=== PATIENT | female | born 1985 | race Hispanic/Latino ===

== ENCOUNTER 2022-11-20 13:00 | Emergency (ER) | payer BC ==
--- OUTSIDE RECORDS SUMMARY | 2022-11-20 13:03 | XMS REPORT | Continuity of Care Document ---
:1985 Author Organization [facility] t Address [address] [place] [address] Care Team Providers Name Role Phone PCP, PATIENT DOES NOT HAVE A Primary Care Physician UnavailCATA Ya Attending Clinician Unavailable [id number] Attending Clinician Unavailable RADHA MARTINEZ Attending Clinician Unavailable [id number] Attending Clinician Unavailable Radha Martinez MD Attending Clinician [phone] Provider, [facility] Attending Clinician Unavailable Only, Ang Db Test Attending Clinician Unavailable Ian Noguera MD Attending Clinician EbDarrick Lagunas Attending Clinician DARRICK SAUNDERS Attending Clinician Unavailable Doctor Unassigned, [place] Attending Clinician Unavailable BINTA GORE Attending Clinician Unavailable FL1, [id number] Attending Clinician Unavailable LAB39 Attending Clinician Unavailable Binta Gore MD Attending Clinician Simona Fernandez RN Attending Clinician Unavailable SARAH CALLEJAS Attending Clinician Unavailable Only, Adc Test Attending Clinician Unavailable Sarah Callejas MD Attending Clinician Payers Payer Name Policy Type Policy Number Effective Date Expiration Date S santana BCBS 2 [id number] 2021 00:00:00 Problems Condition Condition Condition Status Onset Resolution Last Treating Co mments Source Name Details Category Date Date Treatment Clinician Date 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 Shawn sey streptococ streptococ 2-09 Se ybold sosa sosa 00:00: - tonsilliti tonsilliti 00 Ex terna s s l Pharyngiti Pharyngiti Disease Active 2021-11 Igor moreno s due to s due to 11-28 Seybol d Streptococ Streptococ 00:00: - cus cus 00 Externa species species l Acute Acute Disease Active 2021-11 Apoorva pharyngiti pharyngiti 11-17 Se ybold s due to s due to 00:00: - other other 00 Externa specified specified l organisms organisms Breast Breast Disease Active 2021-11 Apoorva pain pain 0-11 Seybold 00:00: - 00 Externa l Nausea Nausea Disease Active 2021-11 Apoorva 0-11 Seybold 00:00: - 00 Externa l Gastroesop Gastroesop Disease Active 2021-11 Igor moreno hageal hageal 0-11 Seybold reflux reflux 00:00: - disease disease 00 Externa without without l esophagiti esophagiti s s Allergies, Adverse Reactions, Alerts Allergy Allergy Status Severity Reaction(s) Onset Inactive Treating Comm ents Source Name Type Date Date Clinician NO KNOWN Drug Active [facility] Social History Social Habit Start Date Stop Date Quantity Comments Source History SDOH Apoorva Eddy ld - Alcohol Binge External History SDOH Apoorva Eddy ld - Alcohol Frequency Externa l History SDOH Apoorva Eddy ld - Alcohol Std External Drinks Exposure to Not sure University SARS-CoV-2 [facility] (event) [place] Alcohol intake 2022-10-09 2022-10-09 Current drinker Rajesh sigala mick - 00:00:00 00:00:00 of alcohol External (finding) Alcohol Comment 2021-11-07 2021-11-07 rarely Apoorva Giles fredoold - 00:00:00 00:00:00 External Tobacco use and 2021-11-07 2021-11-07 Smokeless tobacco Ke xochilt Seybold - exposure 00:00:00 00:00:00 non-user External Sex [birth year] At [birth year] Apoorva Giles fredoold - 00:00:00 00:00:00 External Smoking Status Start Date Stop Date Source Unknown if ever smoked [facility] Never smoked tobacco Apoorva Morgan old - External Medications Ordered Filled Start Stop Current Ordering Indication Dosage Frequency Signature Comments Components Source Medication Medication Date Date Medication? Clinician (SIG) Name Name Cefuroxime 2021-11 Yes [id number] 250mg Take 1 Apoorva Axetil 250 2-09 tablet Seybold MG oral 00:00: (250 mg - Tablet 00 total) by Externa mouth 2 l times daily Cefuroxime 2021-11- No [id number] 250mg Take 1 Apoorva Axetil 250 2- 12- tablet Seybol d MG oral 00:00: 00:00 (250 mg - Tablet 00 :00 total) by Externa mouth 2 l times daily Amoxicillin 2021-11 Yes [id number] 1{tbl} Take 1 Apoorva -Pot 1-28 tablet by Seybold Clavulanate 00:00: mouth 2 - 875-125 MG 00 times Externa oral Tablet daily l Amoxicillin 2021-11- No [id number] 1{tbl} Take 1 Apoorva -Pot 1-28 - tablet by Seybold Clavulanate 00:00: 00:00 mouth 2 - 875-125 MG 00 :00 times Externa oral Tablet daily l Fluconazole 2021-11- Yes [id number] 150mg Take 1 Apoorva 150 MG oral -28 -29 tablet Seybo ld Tablet 00:00: 05:59 (150 mg - 00 :00 total) by Externa mouth once l for 1 dose Amoxicillin 2021-11 Yes [id number] 1{tbl} Take 1 Apoorva -Pot 1-17 tablet by Seybold Clavulanate 00:00: mouth 2 - 875-125 MG 00 times Externa oral Tablet daily l Amoxicillin 2021-11- No [id number] 1{tbl} Take 1 Apoorva -Pot 1-17 -28 tablet by Seybold Clavulanate 00:00: 00:00 mouth 2 - 875-125 MG 00 :00 times Externa oral Tablet daily l Famotidine 2021-11 Yes [id number] 20mg Take 1 Apoorva (Pepcid) 20 0-11 tablet (20 Se ybold MG oral 00:00: mg total) - tablet 00 by mouth 2 Externa times l daily Famotidine 2021-11 Yes [id number] 20mg Take 1 Apoorva (Pepcid) 20 0-11 tablet (20 Se ybold MG oral 00:00: mg total) - tablet 00 by mouth 2 Externa times l daily Famotidine 2021-11 Yes [id number] 20mg Take 1 Apoorva (Pepcid) 20 0-11 tablet (20 Se ybold MG oral 00:00: mg total) - tablet 00 by mouth 2 Externa times l daily Famotidine 2021-11 Yes [id number] 20mg Take 1 Apoorva (Pepcid) 20 0-11 tablet (20 Se ybold MG oral 00:00: mg total) - tablet 00 by mouth 2 Externa times l daily No known No No known Kelse y medications 1-07 medication Se ybold 14:21: s 32 Immunizations Ordered Immunization Filled Immunization Date Status Commen ts Source Name Name Tdap- (Boostrix, 2021-08-04 Completed Apoorva simpson Adacel) 00:00:00 - External Influenza Virus 2021-08-04 Completed Apoorva barton Vaccine, age 7 00:00:00 - External months and up Tdap- (Boostrix, 2021-08-04 Completed Apoorva waltersbold Adacel) 00:00:00 Influenza Virus 2021-08-04 Completed Apoorva barton Vaccine, age 6 00:00:00 months and up Tdap- (Boostrix, 2021-08-04 Completed Apoorva waltersbogavino Adacel) 00:00:00 - External Influenza Virus 2021-08-04 Completed Apoorva barton Vaccine, age 7 00:00:00 - External months and up Tdap- (Boostrix, 2021-08-04 Completed Apoorva waltersbold Adacel) 00:00:00 - External Influenza Virus 2021-08-04 Completed Apoorva barton Vaccine, age 7 00:00:00 - External months and up Tdap- (Boostrix, 2021-08-04 Completed Apoorva waltersbold Adacel) 00:00:00 - External Influenza Virus 2021-08-04 Completed Apoorva barton Vaccine, age 7 00:00:00 - External months and up Vital Signs Vital Name Observation Time Observation Value Comments Source Body weight 2022-10-09 16:51:00 61.689 kg Apoorva simpson - External BMI 2022-10-09 16:51:00 24.09 kg/m2 Apoorva S eybold - External Oxygen saturation in 2022-10-09 16:51:00 99 /min Apoorva Seybold - Arterial blood by External Pulse oximetry Systolic blood 2022-10-09 16:51:00 103 mm[Hg] Apoorva Seybold - pressure External Diastolic blood 2022-10-09 16:51:00 67 mm[Hg] Kelse y Seybold - pressure External Heart rate 2022-10-09 16:51:00 88 /min Apoorva S eybold - External Body temperature 2022-10-09 16:51:00 37.17 Jany Abida ey Seybold - External Respiratory rate 2022-10-09 16:51:00 14 /min Abida ey Seybold - External Body height 2022-10-09 16:51:00 160 cm Apoorva S eybold - External Body weight 2022-09-28 19:17:00 61.689 kg Apoorva S eybold - External BMI 2022-09-28 19:17:00 24.09 kg/m2 Apoorva S eybold - External Oxygen saturation in 2022-09-28 19:17:00 99 /min Apoorva Seybold - Arterial blood by External Pulse oximetry Systolic blood 2022-09-28 19:17:00 103 mm[Hg] Apoorva Seybold - pressure External Diastolic blood 2022-09-28 19:17:00 65 mm[Hg] Shawnse y Seybold - pressure External Heart rate 2022-09-28 19:17:00 78 /min Apoorva S eybold - External Body temperature 2022-09-28 19:17:00 37.11 Jany Abida ey Seybold - External Respiratory rate 2022-09-28 19:17:00 14 /min Abida ey Seybold - External Body height 2022-09-28 19:17:00 160 cm Apoorva S eybold - External Systolic blood 2022-09-17 16:36:00 88 mm[Hg] Apoorva Seybold - pressure External Diastolic blood 2022-09-17 16:36:00 44 mm[Hg] Kelse y Seybold - pressure External Heart rate 2022-09-17 16:36:00 120 /min Apoorva S eybold - External Body temperature 2022-09-17 16:36:00 36.67 Jany Abida ey Seybold - External Respiratory rate 2022-09-17 16:36:00 14 /min Abida ey Seybold - External Body height 2022-09-17 16:36:00 160 cm Apoorva S eybold - External Body weight 2022-09-17 16:36:00 62.596 kg Apoorva S eybold - External BMI 2022-09-17 16:36:00 24.45 kg/m2 Apoorva S eybold - External Systolic blood 2022-08-11 21:09:00 109 mm[Hg] Apoorva Seybold - pressure External Diastolic blood 2022-08-11 21:09:00 67 mm[Hg] Kelse y Seybold - pressure External Heart rate 2022-08-11 21:09:00 65 /min Apoorva S eybold - External Body temperature 2022-08-11 21:09:00 36.56 Jany Abida ey Seybold - External Respiratory rate 2022-08-11 21:09:00 14 /min Abida ey Seybold - External Body height 2022-08-11 21:09:00 160 cm Apoorva S eybold - External Body weight 2022-08-11 21:09:00 63.504 kg Apoorva S eybold - External BMI 2022-08-11 21:09:00 24.80 kg/m2 Apoorva S eybold - External Systolic blood 2021-11-07 20:00:00 110 mm[Hg] Apoorva Seybold pressure Diastolic blood 2021-11-07 20:00:00 70 mm[Hg] Kelse y Seybold pressure Heart rate 2021-11-07 20:00:00 72 /min Apoorva S eybold Body temperature 2021-11-07 20:00:00 36.67 Jany Abida ey Seybold Respiratory rate 2021-11-07 20:00:00 18 /min Abida ey Seybold Body height 2021-11-07 20:00:00 160 cm Apoorva S eybold Body weight 2021-11-07 20:00:00 63.776 kg Apoorva S eybold BMI 2021-11-07 20:00:00 24.91 kg/m2 Apoorva S eybold Procedures Procedure Date / Time Performed Performing Clinician [facility] e LS RAPID STREP 2022-10-09 17:07:09 Cata Clarke ld - ASSAY-LAB TEST External LS RAPID STREP 2022-09-17 16:46:53 Cata Clarke ld - ASSAY-LAB TEST External LS RAPID FLU ASSAY-LAB 2022-09-17 16:46:53 Cata Clarke Seybold - TEST External ASSIGNMENT OF BENEFITS 2021-12-11 14:45:53 Doctor Unassigned, No [facility] URINALYSIS, ROUTINE 2021-11-07 21:40:00 Binta Gore CBC WITH 2021-11-07 20:55:00 Binta Gore DIFFERENTIAL/PLATELET LIPID PANEL 2021-11-07 20:55:00 Binta Gore BASIC METABOLIC PANEL 2021-11-07 20:55:00 Binta Gore (8) CONSENT/REFUSAL FOR 2020-08-01 16:42:56 Doctor Unassigned, No [facility] DIAGNOSIS AND [facility] TREATMENT ASSIGNMENT OF BENEFITS 2020-08-01 16:42:40 Doctor Unassigned, No [facility] Encounters Start End Encounter Admission Attending Care Care Encounter Source Date/Time Date/Time Type Type Clinicians Facility Department ID 2022-11-20 2022-11-20 Outpatient APOORVA CALRKE [id number] Apoorva 00:00:00 00:00:00 CATA Seybol d 2022-10-16 2022-10-16 Outpatient APOORVA CLARKE [id number] Apoorva 00:00:00 00:00:00 CATA Seybol d 2022-10-09 2022-10-09 Outpatient [id number] APOORVA GOMES [id number] Apoorva 14:10:00 14:10:00 Seybol d 2022-10-09 2022-10-09 Outpatient APOORVA CLARKE [id number] Apoorva 11:00:00 11:00:00 CATA Seybol d 2022-09-28 2022-09-28 Outpatient PLT40-HLD APOORVA GOMES [id number] Apoorva 16:40:00 16:40:00 Seybol d 2022-09-28 2022-09-28 Outpatient APOORVA CLARKE [id number] Apoorva 13:30:00 13:30:00 CATA Seybol d 2022-09-17 2022-09-17 Outpatient [id number] APOORVA GOMES [id number] Apoorva 13:50:00 13:50:00 Seybol d 2022-09-17 2022-09-17 Outpatient APOORVA CLARKE [id number] Apoorva 10:45:00 10:45:00 CATA Seybol d 2022-08-28 2022-08-28 Outpatient APOORVA CLARKE [id number] Apoorva 00:00:00 00:00:00 CATA Seybol d 2022-08-11 2022-08-11 Outpatient APOORVA CLARKE [id number] Apoorva 16:30:00 16:30:00 CATA Seybol d 2022-06-25 2022-06-25 Outpatient APOORVA MARTINEZ [id number] Apoorva 00:00:00 00:00:00 RADHA Seybol d 2022-06-12 2022-06-12 Outpatient APOORVA MARTINEZ [id number] Apoorva 00:00:00 00:00:00 RADHA Seybol d 2022-06-11 2022-06-11 Outpatient LAB APOORVA GOMES [id number] Apoorva 16:30:00 16:30:00 Seybol d 2022-06-11 2022-06-11 Office Adolfo Martinez [id number] Apoorva 15:45:00 16:00:00 Visit Radha Wilkinson [id number] Se mick Somogyi 1.2.7.2.686 [id number] 2021-12-12 2021-12-12 Letter Provider, [facility] [id number] Univers 00:00:00 00:00:00 (Out) [facility] [id number] it y of Urgent Care SURGICAL 4.2.7.2.686 [facility] [id number] Nc dical ES 370 [facility] 2021-12-11 2021-12-11 Laboratory Only, Ang Db Test [facility] 1.2.8 40.114 [id number] Univers 09:15:00 09:30:00 Only Ian Noguera [facility] 350.1.13.10 ity of Darrick Saunders [place] 4.2.7.2.686 [place] ALEXIS?BLEA [phone] Nc dical RICHARD [address] [place] [address] MEDICAL OFFICE BUILDING 2021-12-11 2021-12-11 Outpatient R SILAS [facility] [id number] Univers 09:15:00 09:25:52 RANIA ity of [facility] 2021-12-11 2021-12-11 Orders Doctor SUSAN [id number] Univers 00:00:00 00:00:00 Only Unassigned, DANG 350.1.13.10 ity of [place] [facility] 4.2.7.2.686 Nathan [id number] [address] 2021-11-14 2021-11-14 Outpatient APOORVA GORE [id number] Apoorva 00:00:00 00:00:00 BINTA Seybol d 2021-11-10 2021-11-10 Outpatient APOORVA GORE [id number] Apoorva 00:00:00 00:00:00 BINTA Seybol d 2021-11-07 2021-11-07 Outpatient FL1APOORVA [id number] Apoorva 15:25:00 15:25:00 [id number]-RDR Seyb old 2021-11-07 2021-11-07 Outpatient LAB39 APOORVA GOMES [id number] Apoorva 14:55:00 14:55:00 Seybol d 2021-11-07 2021-11-07 Office JAN Gore [id number] Apoorva 14:00:00 14:30:00 Visit Binta ASTORGA 350.1.13.13 Se mick 1.2.7.2.686 [id number] 2020-08-02 2020-08-02 Letter Simona Fernandez 1.2.840.114 [id number] Univers 00:00:00 00:00:00 (Out) DANG 350.1.13.10 it y of HOSPITAL 4.2.7.2.686 Nathan as [id number] [facility] 019 [place] 2020-08-02 2020-08-02 Aleshia Fernandez Simona DAVIS 1.2.840.114 [id number] 00:00:00 00:00:00 (Out) DANG 350.1.13.10 HOSPITAL 4.2.7.2.686 [id number] 2020-08-01 2020-08-01 Outpatient Anna [facility] [id number] Univers 12:00:00 12:00:00 SARAH sun [facility] 2020-08-01 2020-08-01 Laboratory Only, [facility] 1.2.840.114 [id number] 11:44:35 11:59:35 Only Test Fabian 350.1.13.10 [place] 4.2.7.2.686 [place] [id number] 2020-08-01 2020-08-01 Laboratory Only, [facility] Test [facility] 1.2.840. 114 [id number] [facility] 11:44:35 11:59:35 Only Sarah Callejas 350.1.13.10 ity of [place] 4.2.7.2.686 [facility] [id number] [facility] 353 [place] 2020-08-01 2020-08-01 Orders Doctor DAVIS 1.2.840.114 [id number] 00:00:00 00:00:00 Only Unassigned, DANG 350.1.13.10 [place] [facility] 4.2.7.2.686 [id number] 2020-08-01 2020-08-01 Orders Doctor DAVIS 1.2.840.114 [id number] Univers 00:00:00 00:00:00 Only Unassigned, DANG 350.1.13.10 ity of [place] [facility] 4.2.7.2.686 Nathan as [id number] [address] Results Test Description Test Time Test Comments Results Result Comments Source RAPID STREP ASSAY-LAB TEST 2022-10-09 17:20:03 Test Item Value Reference Range Interpretation Comme nts STREP GP A AG, IA (test code = 91155-7) Positive Negative A Lab Interpretation (test code = 29170-4) Abnormal Apoorva Menendez RAPID FLU ASSAY-LAB [id number] 17:08:14 Test Item Value Reference Range Interpretation Comments INFLUENZA B AG, EIA (test code = Negative Negative 85058-0) Lab Interpretation (test code = Normal 58983-3) Apoorva Nice RAPID STREP ASSAY-LAB [id number] 17:07:44 Test Item Value Reference Range Interpretation Comments STREP GP A AG, IA (test code = Positive Negative A 85649-8) Lab Interpretation (test code = Abnormal 79449-8) Apoorva Paige ExternalLIPID [id number] 12:10:00 Test Item Value Reference Range Interpretation Comments CHOLESTEROL, TOTAL (test 266 mg/dL 100-199 H code = 2093-3) TRIGLYCERIDES (test code = 268 mg/dL 0-149 H 2571-8) HDL CHOLESTEROL (test code 46 mg/dL >39 = 2085-9) VLDL CHOLESTEROL SOSA (test 51 mg/dL 5-40 H code = 91861-1) LDL CHOL CALC (NIH) (test 169 mg/dL 0-99 H code = 20459-6) ASHWIN (test code = ASHWIN) [facility] results reported in Eastern Time. [facility] Clinical Information:SRC:Blo od, venous*Venipunc ture ? [facility] Source of Specimen:Blood, venous*Venipunc Lab Interpretation (test Abnormal code = 25428-6) Apoorva GilesmickURINALYSIS, [id number] 12:10:00 Test Item Value Reference Range Interpretation Comments SPECIFIC GRAVITY 1.005-1.030 (test code = 2965-2) PH (test code = 5.0-7.5 5803-2) URINE-COLOR (test Yellow Yellow code = 5778-6) APPEARANCE (test Clear Clear code = 5767-9) WBC ESTERASE (test Negative Negative code = 5799-2) PROTEIN (test code Negative Negative/Trace = 23775-9) GLUCOSE (test code Negative Negative = 2349-9) KETONES (test code Negative Negative = 2514-8) OCCULT BLOOD (test Negative Negative code = 5794-3) BILIRUBIN (test Negative Negative code = 5770-3) UROBILINOGEN,SEMI-Q 0.2 mg/dL 0.2-1.0 N (test code = 14921-2) NITRITE, URINE Negative Negative (test code = 5802-4) MICROSCOPIC Microscopic not EXAMINATION (test indicated and not code = 15937-5) performed. ASHWIN (test code = [facility] results ASHWIN) reported in Eastern Time. [facility] Clinical Information:SRC: Urine*Urine ?[facility] Source of Specimen:Urine*U [facility] EastyboldBASI METABOLIC PANEL (8)2021-11-08 11:07:00 Test Item Value Reference Range Interpretation Comments GLUCOSE, SERUM 87 mg/dL 65-99 (test code = 2345-7) BUN (test code = 10 mg/dL 6-20 3094-0) CREATININE, SERUM 0.60 mg/dL 0.57-1.00 (test code = 2160-0) EGFR IF NONAFRICN 118 mL/min/1.73 >59 AM (test code = 79277-1) EGFR IF AFRICN AM 137 mL/min/1.73 >59 In ac cordance with (test code = recommendations from 40505-7) the NKF-ASN Tas k force, ?[facility] is in the process of updating its eG FR calculation to the ?2020 CKD-EPI creatinine equa tion that estimates kidney function ?witho ut a race variable. BUN/CREATININE 9-23 RATIO (test code = 3097-3) SODIUM, SERUM 139 mmol/L 134-144 (test code = 2951-2) POTASSIUM, SERUM 3.8 mmol/L 3.5-5.2 (test code = 2823-3) CHLORIDE, SERUM 100 mmol/L 96-106 (test code = 5-0) CARBON DIOXIDE, 25 mmol/L 20-29 TOTAL (test code = 2027-) CALCIUM, SERUM 8.9 mg/dL 8.7-10.2 (test code = 28042-8) ASHWIN (test code = [facility] results ASHWIN) reported in Eastern Time. [facility] Clinical Information:SRC :Blood, venous*Venipunc ture ? [facility] Source of Specimen:Blood, venous*Venipunc [facility]va [facility] WITH DIFFERENTIAL/[id number] 09:07:00 Test Item Value Reference Range Interpretation Comments WHITE BLOOD CELL See_Comment H [Automated (WBC) COUNT (test message] T he code = 6690-2) system which generated this result transmit julio césar reference range : 3.4 - 10.8 x10E3/uL. The reference range was not used to interpret this result as normal/abnormal . RED BLOOD CELL (RBC) See_Comment [Autom ated COUNT (test code = message] The 789-8) system which generated this result transmit julio césar reference range : 3.77 - 5.28 x10E6/uL. The reference range was not used to interpret this result as normal/abnormal . HEMOGLOBIN (test code 13.5 g/dL 11.1-15.9 = 718-7) HEMATOCRIT (test code 41.7 % 34.0-46.6 = 4544-3) MCV (test code = 87 fL 79-97 787-2) MCH (test code = 28.3 pg 26.6-33.0 785-6) MCHC (test code = 32.4 g/dL 31.5-35.7 786-4) RDW (test code = 12.5 % 11.7-15.4 788-0) PLATELETS (test code See_Comment [Autom ated = 777-3) message] The system which generated this result transmit julio césar reference range : 150 - 450 x10E3/uL. The reference range was not used to interpret this result as normal/abnormal . NEUTROPHILS (test 70 % Not Estab. code = 770-8) LYMPHS (test code = 23 % Not Estab. 736-9) MONOCYTES (test code 6 % Not Estab. = 5905-5) EOS (test code = 1 % Not Estab. 713-8) BASOS (test code = 0 % Not Estab. 706-2) NEUTROPHILS See_Comment H [Automated (ABSOLUTE) (test code messag e] The = 531-8) system which generated this result transmit julio césar reference range : 1.4 - 7.0 x10E3/uL. The reference range was not used to interpret this result as normal/abnormal . LYMPHS (ABSOLUTE) See_Comment [Automate d (test code = 731-0) message] The system which generated this result transmit julio césar reference range : 0.7 - 3.1 x10E3/uL. The reference range was not used to interpret this result as normal/abnormal . MONOCYTES(ABSOLUTE) See_Comment [Automa julio césar (test code = 742-7) message] The system which generated this result transmit julio césar reference range : 0.1 - 0.9 x10E3/uL. The reference range was not used to interpret this result as normal/abnormal . EOS (ABSOLUTE) (test See_Comment [Autom ated code = 711-2) message] The system which generated this result transmit julio césar reference range : 0.0 - 0.4 x10E3/uL. The reference range was not used to interpret this result as normal/abnormal . BASO (ABSOLUTE) (test See_Comment [Auto mated code = 704-7) message] The system which generated this result transmit julio césar reference range : 0.0 - 0.2 x10E3/uL. The reference range was not used to interpret this result as normal/abnormal . IMMATURE GRANULOCYTES 0 % Not Estab. (test code = 42063-7) IMMATURE GRANS (ABS) See_Comment [Autom ated (test code = 88513-9) messag e] The system which generated this result transmit julio césar reference range : 0.0 - 0.1 x10E3/uL. The reference range was not used to interpret this result as normal/abnormal . ASHWIN (test code = ASHWIN) [facility] results reported in Eastern Time. [facility] Clinical Information:SRC :Blood, venous*Venipunc ture ? [facility] Source of Specimen:Blood, venous*Venipunc Lab Interpretation Abnormal (test code = 74472-2) Apoorva Paige
[2022-11-20] MEDS ORDERED: LIDOCAINE VISCOUS 2% SOLN 15 ML UDC ONE (13:39)
[2022-11-20] MEDS ORDERED: ONDANSETRON 4 MG/2 ML VIAL ONE (13:39)
[2022-11-20] MEDS ORDERED: FAMOTIDINE 20 MG/2 ML VIAL IV ONE (13:39)
[2022-11-20] MEDS ORDERED: MAGNES/ALUMIN/SIMET 30ML UCUP ONE (13:39)
[2022-11-20 13:44] LABS: Absolute Lymphocytes (CBC) 1.7 K/uL (0.7-4.9); Hematocrit 39.8 % (36.0-45.0); Lymphocytes % 9.1 % (15.3-44.8); MCV 86.3 fL (80-100); RBC Red Blood Cell Count 4.61 M/uL (3.86-4.86)
[2022-11-20 13:49] LABS: Urine Blood Trace-intact (Negative); Urine Glucose Negative (Negative); Urine Protein Negative (Negative); Urine Specific Gravity >=1.030 (1.005-1.030); Urine pH 5.5 (5.0-7.0)
[2022-11-20 13:57] LABS: Albumin 3.4 g/dL (3.4-5.0); Bilirubin Total 0.2 mg/dL (0.2-1.0); Potassium 3.7 mmol/L (3.5-5.1); Protein, Total 8.3 g/dL (6.4-8.2)
[2022-11-20 14:08] LABS: Urine Bacteria None Seen /HPF (<20); Urine RBC <5 /HPF (None Seen)
--- NOTE | 2022-11-20 14:29 | RAD REPORT ---
EXAM DESCRIPTION: CT - Abdomen Pelvis W Contrast - 11/20/2022 2:09 pm CLINICAL HISTORY: abdominal pain COMPARISON: No comparisons TECHNIQUE: Biphasic, helical CT imaging of the abdomen and pelvis was performed following 100 ml non -ionic IV contrast. Oral contrast: No. All CT scans are performed using dose optimization technique as appropriate and may include automated exposure control or mA/KV adjustment according to patient size. FINDINGS: Respiratory motion degradation is present. There is patchy airspace opacification in the p osterior right lung base suspicious for pneumonia. Correlation is needed with any corresponding clini sosa or laboratory findings. The liver, spleen, and pancreas show no suspicious findings. Gallbladder and biliary tree are also wi thout suspicious finding. Symmetric renal function is seen with no hydronephrosis or suspicious renal mass. No pyelonephritis o r acute parenchymal process. No bladder abnormalities. No adrenal abnormalities. Uterus and ovaries s how no suspicious findings. Nabothian cysts are present in the cervix. Fluid fills but does not dilate the stomach. No duodenal abnormality. Small bowel loops are not dilat ed. There are multiple small bowel loops that show a mild wall thickening and edema pattern. There is no appendicitis. No acute colon process identifiable. There is sigmoid tortuosity. No free air, free fluid or inflammatory stranding. No mass or bulky lymphadenopathy. A 2 centimeter size umbilical hernia is present. Neck is approximately 6 mm. No congestion or edema. No suspicious bony findings. IMPRESSION: Enteritis pattern with several small bowel loops showing wall thickening and edema. Patchy airspace opacities are present in the posterior right lung base suspicious for a mild pneumoni a. Patient has a fat only umbilical hernia. There is no congestion or edema of the fat to indicate an ac tive process.
--- NOTE | 2022-11-20 14:51 | EDPHYS ---
Physician Documentation [facility] Name: Janelle Nesbitt Age: 37 yrs Sex: Female : 1985 Arrival Date: 11/20/2022 Time: 13:03 Bed 11 Private MD: Ki Clarke ED Physician Yousif Whitaker HPI: 11/20 13:20 This 37 yrs old Female presents to ER via Ambulatory with complaints of ms3 Abdominal Pain. 13:20 37-year-old female with no past medical history presents with her for ms3 epigastric and periumbilical abdominal pain that began this morning while at work. Patient endorses vomiting 3 times. Patient states the pain is a 10/10 and burning. Patient denies alleviating or inciting factors.. Historical: - Allergies: 13:15 No Known Allergies; iw - Home Meds: 13:15 None [Active]; iw - PMHx: 13:15 None; iw - Immunization history:: Adult Immunizations unknown. - Social history:: Smoking status: unknown. ROS: 13:20 Constitutional: Negative for fever, and chills. Neck: Negative for injury, pain, and ms3 swelling. 13:20 MS/Extremity: Negative for injury and deformity. 13:20 Abdomen/GI: Positive for abdominal pain, nausea and vomiting. 13:20 All other systems are negative. Exam: 13:20 Constitutional: This is a well developed, well nourished patient who is awake, alert, ms3 and in no acute distress. Head/Face: Normocephalic, atraumatic. Neck: Trachea midline, no cervical lymphadenopathy. Supple, full range of motion without nuchal rigidity, or vertebral point tenderness. No Meningismus. Chest/axilla: Normal chest wall appearance and motion. Nontender with no deformity. Cardiovascular: Regular rate and rhythm with a normal S1 and S2. No gallops, murmurs, or rubs. Normal PMI, no JVD. No pulse deficits. Respiratory: Lungs have equal breath sounds bilaterally, clear to auscultation and percussion. No rales, rhonchi or wheezes noted. No increased work of breathing, no retractions or nasal flaring. 13:20 Skin: Warm, dry with normal turgor. Normal color with no rashes, no lesions, and no evidence of cellulitis. 13:20 Abdomen/GI: Inspection: abdomen appears normal, Bowel sounds: normal, Palpation: moderate abdominal tenderness, in the epigastric area and umbilical area, Hernia: noted in the umbilical area, tenderness, that is mild. Vital Signs: 13:14 BP 117 / 97; Pulse 84; Resp 16; Temp 97.8; Pulse Ox 99% on R/A; Pain 10/10; iw 14:32 BP 121 / 82; Pulse 80; Resp 16; Pulse Ox 100% on R/A; mb9 MDM: 13:20 Differential diagnosis: appendicitis, gastritis, gastroesophageal reflux disease, ms3 non-specific abd pain. 13:23 Patient medically screened. ms3 15:01 Data reviewed: vital signs, nurses notes, lab test result(s), radiologic studies, CT ms3 scan, and as a result, I will discharge patient. 15:01 Consideration of Admission/Observation Escalation of care including ms3 admission/observation considered. No emergent indication for hospitalization identified at this time. I considered the following discharge prescriptions or medication management in the emergency department Medications were administered in the Emergency Department. See MAR. Historians other than the Patient: Spouse/Significant Other: Patient's . 11/20 13:20 Order name: CBC with Diff; Complete Time: 14:05 ms3 11/20 15:09 Interpretation: Abnormal: WBC 18.20. ms3 11/20 13:20 Order name: CMP; Complete Time: 14:05 ms3 11/20 15:10 Interpretation: Within normal limits: NA 138; K 3.7; CL 104; CO2 27; GLUC 109; CRE ms3 0.58; AST 22; ALT 18; BILIT 0.2. 11/20 13:20 Order name: Lipase; Complete Time: 14:05 ms3 11/20 13:20 Order name: Urine Microscopic Only; Complete Time: 14:11 ms3 11/20 13:49 Order name: Urine --Ancillary (enter results); Complete Time: 14:11 eb 11/20 13:49 Order name: Urine Dipstick-Ancillary; Complete Time: 14:05 EDMS 11/20 13:20 Order name: CT Abd/Pelvis - IV Contrast Only; Complete Time: 14:30 ms3 11/20 13:20 Order name: IV Saline Lock; Complete Time: 13:49 ms3 11/20 13:20 Order name: Labs collected and sent; Complete Time: 13:49 ms3 11/20 13:20 Order name: Urine Dipstick-Ancillary (obtain specimen); Complete Time: 13:49 ms3 Administered Medications: 13:35 Drug: GI Cocktail without - (Maalox Suspension 30 ml, Lidocaine Liquid 2 % 15 mb9 ml) Route: PO; 14:05 Follow up: Response: No adverse reaction mb9 13:38 Drug: Pepcid (famotidine) 20 mg Route: IVP; Site: right antecubital; mb9 14:05 Follow up: Response: No adverse reaction mb9 13:49 Drug: Zofran (Ondansetron) 4 mg Route: IVP; Site: right antecubital; mb9 14:06 Follow up: Response: No adverse reaction mb9 Disposition Summary: 11/20/22 14:50 Discharge Ordered Location: Home ms3 Condition: Stable ms3 Diagnosis - Abdominal pain, unspecified ms3 - Vomiting ms3 - Other pneumonia, unspecified organism ms3 Followup: ms3 - With: Ki Clarke DO - When: 2 - 3 days - Reason: Recheck today's complaints Discharge Instructions: - Discharge Summary Sheet ms3 - Abdominal Pain, Adult ms3 - Vomiting, Adult ms3 - Community-Acquired Pneumonia, Adult ms3 Forms: - Medication Reconciliation Form ms3 - Thank You Letter ms3 - Antibiotic Education ms3 - Prescription Opioid Use ms3 - Work release form mb9 Prescriptions: - azithromycin 250 mg Oral tablet - take 2 tablet by ORAL route once daily for 1 day then 1 tablet (250 mg) by oral ms3 route once daily for 4 days; 6 tablet; Refills: 0, Product Selection Permitted - Pepcid 20 mg Oral Tablet - take 1 tablet by ORAL route once daily for 10 days; 10 tablet; Refills: 0, ms3 Product Selection Permitted - ondansetron 4 mg Oral - take 4 milligrams by SUBLINGUAL route every 8 hours; 15 tablet; Refills: 0, ms3 Product Selection Permitted Signatures: Dispatcher [employer] Stephanie London RN RN iw Sims, Marcus, DO DO ms3 Iraida Magana RN RN mb9
--- NOTE | 2022-11-20 14:51 | ER ---
Nurse's Notes [facility] Name: Janelle Nesbitt Age: 37 yrs Sex: Female : 1985 Arrival Date: 11/20/2022 Time: 13:03 Bed 11 Private MD: Ki Clarke Diagnosis: Abdominal pain, unspecified;Vomiting;Other pneumonia, unspecified organism Presentation: 11/20 13:14 Chief complaint: Patient states: pain from epigastrium to belly button , was vomiting, iw started today while at work. Coronavirus screen: At this time, the client does not indicate any symptoms associated with coronavirus-19. Ebola Screen: Patient negative for fever greater than or equal to 101.5 degrees Fahrenheit, and additional compatible Ebola Virus Disease symptoms Patient denies exposure to infectious person. Patient denies travel to an Ebola-affected area in the 21 days before illness onset. No symptoms or risks identified at this time. Initial Sepsis Screen: Does the patient meet any 2 criteria? No. Patient's initial sepsis screen is negative. Does the patient have a suspected source of infection? No. Patient's initial sepsis screen is negative. Risk Assessment: Do you want to hurt yourself or someone else? Patient reports no desire to harm self or others. Onset of symptoms was November 20, 2022. 13:14 Method Of Arrival: Ambulatory iw 13:14 Acuity: JOHN 3 iw Historical: - Allergies: 13:15 No Known Allergies; iw - Home Meds: 13:15 None [Active]; iw - PMHx: 13:15 None; iw - Immunization history:: Adult Immunizations unknown. - Social history:: Smoking status: unknown. Screenin:16 Abuse screen: Denies threats or abuse. Nutritional screening: No deficits noted. mb9 Tuberculosis screening: No symptoms or risk factors identified. 13:16 [facility] ED Fall Risk Assessment (Adult) History of falling in the last 3 months, mb9 including since admission No falls in past 3 months (0 pts) Confusion or Disorientation No (0 pts) Intoxicated or Sedated No (0 pts) Impaired Gait No (0 pts) Mobility Assist Device Used No (0 pt) Altered Elimination No (0 pt) Score/Fall Risk Level 0 - 2 = Low Risk Oriented to surroundings, Maintained a safe environment, Educated pt \T\ family on fall prevention, incl call for assistance when getting out of bed. Assessment: 13:30 General: Appears uncomfortable, Behavior is cooperative. Pain: Complains of pain in mb9 abdomen Pain does not radiate. Pain currently is 6 out of 10 on a pain scale. Quality of pain is described as squeezing, throbbing, Pain began suddenly, Is intermittent, Aggravated by increased activity, repositioning. Neuro: Todd Agitation-Sedation Scale (RASS): 0 - Alert and Calm Level of Consciousness is awake, alert, obeys commands, Oriented to person, place, time, situation, Appropriate for age. 13:30 Cardiovascular: Capillary refill < 3 seconds is brisk Patient's skin is warm and dry. mb9 Rhythm is regular. Respiratory: Airway is patent Respiratory effort is even, unlabored, Respiratory pattern is regular, symmetrical. GI: Abdomen is flat, non-distended, Bowel sounds present X 4 quads. Abd is soft Abdomen is tender to palpation X 4 quads. Reports nausea, vomiting. : Urine is clear. EENT: No signs and/or symptoms were reported regarding the EENT system. Derm: Skin is pink, warm \T\ dry. Musculoskeletal: Range of motion: intact in all extremities. 14:02 Reassessment: pt taken to CT via wheelchair. mb9 14:32 Reassessment: No changes from previously documented assessment. Patient and/or family mb9 updated on plan of care and expected duration. Pain level reassessed. Patient is alert, oriented x 3, equal unlabored respirations, skin warm/dry/pink. Patient states feeling better. Patient states symptoms have improved. Vital Signs: 13:14 BP 117 / 97; Pulse 84; Resp 16; Temp 97.8; Pulse Ox 99% on R/A; Pain 10/10; iw 14:32 BP 121 / 82; Pulse 80; Resp 16; Pulse Ox 100% on R/A; mb9 ED Course: 13:03 Patient arrived in ED. am2 13:03 Ki Clarke DO is Private Physician. am2 13:04 Yousif Whitaker DO is Attending Physician. ms3 13:15 Triage completed. iw 13:15 Arm band placed on. iw 13:16 Placed in gown. Bed in low position. Call light in reach. Side rails up X 1. Cardiac mb9 monitor on. Door closed. Noise minimized. Warm blanket given. 13:18 Iraida Magana, RN is Primary Nurse. mb9 13:30 Inserted saline lock: 20 gauge in right antecubital area, using aseptic technique. mb9 13:49 CMP Sent. mb9 13:49 Lipase Sent. mb9 13:49 Urine Microscopic Only Sent. mb9 14:06 No provider procedures requiring assistance completed. mb9 14:11 CT Abd/Pelvis - IV Contrast Only In Process Unspecified. EDMS 15:03 Ki Clarke DO is Referral Physician. ms3 15:09 IV discontinued, intact, bleeding controlled, No redness/swelling at site. Pressure iw dressing applied. Administered Medications: 13:35 Drug: GI Cocktail without - (Maalox Suspension 30 ml, Lidocaine Liquid 2 % 15 mb9 ml) Route: PO; 14:05 Follow up: Response: No adverse reaction mb9 13:38 Drug: Pepcid (famotidine) 20 mg Route: IVP; Site: right antecubital; mb9 14:05 Follow up: Response: No adverse reaction mb9 13:49 Drug: Zofran (Ondansetron) 4 mg Route: IVP; Site: right antecubital; mb9 14:06 Follow up: Response: No adverse reaction mb9 Medication: 14:03 VIS not applicable for this client. mb9 Outcome: 14:50 Discharge ordered by MD. ms3 15:09 Discharged to home ambulatory, with family. iw 15:09 Condition: good 15:09 Discharge instructions given to patient, family, Instructed on discharge instructions, follow up and referral plans. medication usage, Demonstrated understanding of instructions, follow-up care, medications, Prescriptions given X 3. 15:10 Patient left the ED. iw Signatures: Dispatcher [employer] Stephanie London, Henrietta Sheehan RN, Marcus, DO DO ms3 Iraida Magana, DEBORAH RN mb9
[2022-11-20 15:14] VITALS: TEMP 97.8
[2022-11-20 15:15] VITALS: BP 121/82; O2SAT 100
== END 2022-11-20 15:10 | disposition home or self-care (01) ==
LOC: ER 13:00
DX: R10.13 Epigastric pain (principal); R11.10 Vomiting, unspecified; J18.8 Other pneumonia, unspecified organism
CPT/HCPCS: 85025; 36415; 81025; 83690; 80053; 74177; 96375; 96374; 99284; Q9967; J2405; 81003; 81015